=== PATIENT | female | born 1960 | race Caucasian/White ===

== ENCOUNTER 2017-03-17 13:20 | Emergency (ER) | payer SELFPAY ==
[~2017-03-17] VITALS: Ht 154.9 cm; Wt 64.0 kg
[2017-03-17 13:40] VITALS: BP 115/60
[2017-03-17] MEDS ORDERED: ASPI-1061 PO (13:43)
[2017-03-17] MEDS ORDERED: METF500T4 PO (13:43)
[2017-03-17] MEDS ORDERED: LISI5TAB PO (13:43)
[2017-03-17] MEDS ORDERED: SIMV20TA6 PO (13:44)
[2017-03-17 13:52] LABS: GLUCOSE,POINT OF CARE 163 MG/DL (70-110)
== END 2017-03-17 14:26 | disposition left against medical advice (07) ==
LOC: EMS 13:28
DX: R11.0 Nausea (principal); Z53.21 Procedure and treatment not carried out due to patient leaving prior to being seen by health care provider
CPT/HCPCS: 82962

== ENCOUNTER 2025-09-29 22:46 | Emergency (ER) | payer MEDICAID ==
[~2025-09-29] VITALS: Ht 157.5 cm; Wt 58.6 kg
[~2025-09-29 22:46] MED LIST: ASPI81TA87 PO; LISI5TAB PO; METF-444 PO; SIMV-43 PO
[2025-09-29 22:53] VITALS: BP 162/75; PULSE 73; RESP 18; TEMP 97.9; O2SAT 100
[2025-09-29 23:25] LABS: PLATELET COUNT (AUTO) 186 K/uL (150-450); RED BLOOD CELL COUNT(AUTO) 4.95 MIL/uL (4.00-5.20); RED CELL DISTRIBUTION WIDTH 13.2 % (11.5-14.5); WHITE BLOOD COUNT (AUTO) 6.4 K/uL (4.5-11.0)
[2025-09-29 23:33] LABS: CALCIUM, TOTAL 9.5 mg/dL (8.8-10.5); CREATININE 0.69 mg/dL (0.60-1.30); GLOMERULAR FILTR. RATE CALC > 60 mL/min (>60); GLUCOSE,RANDOM 185 mg/dL (70-110); SODIUM SERUM 135 mmol/L (136-145); UREA NITROGEN, BLOOD 16 mg/dL (7-18)
[2025-09-29 23:37] LABS: ASPARTATE AMINOTRANSFERASE 18.0 U/L (15-37); TOTAL PROTEIN, SERUM 7.4 g/dL (6.4-8.2)
[2025-09-29 23:41] LABS: TROPONIN I-HIGH SENSITIVITY 5 ng/L (<51)
[2025-09-30 01:20] LABS: TROPONIN I-HIGH SENSITIVITY 6 ng/L (<51)
== END 2025-09-30 01:41 | disposition home or self-care (01) ==
LOC: EMS 22:47
DX: M54.2 Cervicalgia (principal); R07.1 Chest pain on breathing; R42 Dizziness and giddiness; E11.9 Type 2 diabetes mellitus without complications; E78.00 Pure hypercholesterolemia, unspecified; I10 Essential (primary) hypertension; Z79.82 Long term (current) use of aspirin
CPT/HCPCS: 71045; 80048; 80076; 82962; 84484; 85025; 93005; 99285; 36415-L1; 36415-TC